=== PATIENT | male | born 1940 | race Caucasian/White ===

== ENCOUNTER 2022-01-15 16:08 | Observation (INO) ==
[2022-01-15 17:27] LABS: Basophils # 0.1 K/mcL (0.0-0.2); Basophils % 0.5 %; Eosinophils # 0.2 K/mcL (0.0-0.6); Eosinophils % 1.8 %; Hematocrit 40.8 % (37.5-50.1); Hemoglobin 13.7 g/dL (12.9-16.9); Immature Granulocytes % 0.3 % (0-4); Lymphocytes # 4.9 K/mcL (0.6-4.6); Lymphocytes % 47.2 %; Mean Corpuscular HGB Conc 33.6 g/dL (31.6-35.5); Mean Corpuscular Hemoglobin 29.8 pg (28.0-33.3); Mean Corpuscular Volume 88.9 fL (83.0-100.0); Mean Platelet Volume 9.4 fL (9.4-12.4); Monocytes % 9.5 %; Neutrophils # 4.2 K/mcL (1.6-8.9); Platelet Count 189 K/mcL (140-400); Red Blood Count 4.59 M/mcL (4.19-5.50); Red Cell Distribution Width 12.8 % (11.5-14.5); Segmented Neutrophils % 40.7 %; White Blood Count 10.3 K/mcL (4.3-11.1)
[2022-01-15 17:46] LABS: BUN/Creatinine Ratio 14 (6-26); Blood Urea Nitrogen 15 mg/dL (8-23); Carbon Dioxide 26 mEq/L (23-29); Chloride 106 mEq/L (98-107); Glucose 103 mg/dL (70-105); Osmolality,Calculated 287 (280-300); Potassium 3.9 mEq/L (3.5-5.1); Sodium 138 mEq/L (136-145); eGFR For African Americans > 60 (> 60); eGFR For Non-African Americans > 60 (> 60)
[2022-01-15 17:47] LABS: Troponin I < 0.03 ng/mL (< 0.04)
[2022-01-15] MEDS ORDERED: Isovue-370 500 ML BOTTLE IVP ONE (19:02)
[2022-01-15] MEDS ORDERED: Melatonin 3 MG TABLET PO PRN (19:17)
[2022-01-15] MEDS ORDERED: *HR* Promethazine 25 MG/ML VIAL IM PRN (19:17)
[2022-01-15] MEDS ORDERED: *HR* HYDROcodone/Acet 5/325 mg TABLET PO PRN (19:17)
[2022-01-15] MEDS ORDERED: Naloxone 0.4 MG/ML INJ IVP PRN (19:17)
[2022-01-15] MEDS ORDERED: Ondansetron 4 MG/2 ML VIAL IVP PRN (19:17)
[2022-01-15] MEDS ORDERED: Acetaminophen 325 MG TABLET PO PRN (19:17)
[2022-01-15] MEDS ORDERED: Perflutren Lipid Microsphere 1.3 ML in 0.9 % Sodium Chloride 8.7 ML IVP PRN (19:29)
[2022-01-15] MEDS: Apixaban 5 MG TABLET PO SCH (21:56)
[2022-01-15 22:04] LABS: INR 1.2; Prothrombin Time 13.5 Seconds (9.4-12.1)
[2022-01-15 22:07] LABS: Activated Partial Thrombo Time 35.3 Seconds (26.0-36.0)
[2022-01-16 06:21] LABS: Troponin I < 0.03 ng/mL (< 0.04)
[2022-01-16] MEDS: Metoprolol XL (24 HR) Succ 50 MG TAB.ER.24H PO SCH ×3 (06:32→21:06)
[2022-01-16 06:34] LABS: Thyroid Stimulating Hormone 4.642 mcIU/mL (0.340-5.600)
[2022-01-16] MEDS: Apixaban 5 MG TABLET PO SCH (06:42)
[2022-01-16] MEDS: Aspirin Enteric Coated 81 MG Tablet PO SCH (06:42)
[2022-01-16] MEDS ORDERED: Regadenoson 0.4 MG/5 ML SYRINGE IVP ONE (06:54)
[2022-01-16] MEDS ORDERED: Furosemide 20 MG/2 ML VIAL IVP ONE (15:10)
[2022-01-17] MEDS: Aspirin Enteric Coated 81 MG Tablet PO SCH (08:11)
[2022-01-17] MEDS: Metoprolol XL (24 HR) Succ 50 MG TAB.ER.24H PO SCH (08:14)
[2022-01-17] MEDS ORDERED: lisinopriL 5 MG TABLET PO SCH (09:00)
[2022-01-17] MEDS ORDERED: Finasteride 5 MG TABLET PO SCH (09:00)
[2022-01-17 10:59] LABS: Hematocrit 47.2 % (37.5-50.1); Mean Corpuscular HGB Conc 33.1 g/dL (31.6-35.5); Mean Corpuscular Hemoglobin 29.6 pg (28.0-33.3); Mean Corpuscular Volume 89.6 fL (83.0-100.0); Mean Platelet Volume 9.6 fL (9.4-12.4); Platelet Count 221 K/mcL (140-400); Red Blood Count 5.27 M/mcL (4.19-5.50); Red Cell Distribution Width 13.2 % (11.5-14.5); White Blood Count 9.1 K/mcL (4.3-11.1)
[2022-01-17 11:10] LABS: Hemoglobin 15.6 g/dL (12.9-16.9)
[2022-01-17 11:19] LABS: BUN/Creatinine Ratio 12 (6-26); Blood Urea Nitrogen 15 mg/dL (8-23); Carbon Dioxide 28 mEq/L (23-29); Chloride 103 mEq/L (98-107); Glucose 113 mg/dL (70-105); Osmolality,Calculated 288 (280-300); Potassium 3.9 mEq/L (3.5-5.1); Sodium 138 mEq/L (136-145); eGFR For African Americans > 60 (> 60); eGFR For Non-African Americans 58 (> 60)
[2022-01-17 15:14] VITALS: BP 124/90; PULSE 115; TEMP 98.8; O2SAT 94
[2022-01-17] MEDS ORDERED: Apixaban 5 MG TABLET PO SCH (21:00)
[2022-01-17] MEDS ORDERED: Metoprolol XL (24 HR) Succ 50 MG TAB.ER.24H PO SCH (22:00)
== END 2022-01-17 16:15 | disposition home or self-care (01) ==
LOC: 3BNU 16:08 → EMEROOARM 16:08 → SUATTDRO 19:34 → 3BNU 20:34
PROVIDERS: ADMIT Internal Medicine; ATTEND Registered Nurse